=== PATIENT | male | born 1965 | race Hispanic/Latino ===

== ENCOUNTER 2023-03-25 15:46 | Outpatient (CLI) | payer BC, SELFPAY ==
[2023-03-25 17:52] LABS: #Eosinphils 0.2 10x3/uL (0.0-0.5); #Monocytes 0.6 10x3/uL (0.0-1.1); #Neutrophils 3.8 10x3/uL (1.5-8.4); %Basophils 0.4 % (0.0-2.0); %Lymphocytes 31.2 % (18.0-47.0); %Neutrophils 56.1 % (40.0-75.0); ALT (SGPT) 20 U/L (8-55); AST (SGOT) 19 U/L (5-34); Albumin 4.1 g/dL (3.5-5.0); Alkaline Phosphatase 121 U/L (40-110); Anion Gap 13 mmol/L (10-20); BUN (Urea Nitrogen) 14 mg/dL (8.4-25.7); Bilirubin, Total 0.6 mg/dL (0.2-1.2); Calc. Creatinine Clearance 0 mL/min (70-130); Calcium 8.6 mg/dL (7.8-10.44); Carbon Dioxide 26 mmol/L (22-29); Chloride 104 mmol/L (98-107); Estimated GFR 100; Globulin 2.9 g/dL (2.4-3.5); Glucose 100 mg/dL (70-105); Hematocrit 43.3 % (38.8-50.0); Hemoglobin 14.3 g/dL (13.5-17.5); Mean Corpuscular Hemoglobin 29.2 pg (27.0-33.0); Mean Corpuscular Volume 88.4 fl (81.2-95.1); Mean Platelet Volume 10.7 fl (7.4-10.4); Platelet Count 275 10x3/uL (150-450); RBC Distribution Width 12.7 % (11.5-14.5); Sodium 139 mmol/L (136-145); White Blood Cell (WBC) Count 6.8 10x3/uL (3.5-10.5)
== END 2023-03-25 15:47 | disposition home or self-care (01) ==
LOC: LABBT 15:46
PROVIDERS: ATTEND Surgery
DX: Z01.818 Encounter for other preprocedural examination (principal); K42.9 Umbilical hernia without obstruction or gangrene
CPT/HCPCS: 80053; 85025; 93005; 93010

== ENCOUNTER 2023-03-29 08:28 | Day surgery (SDC) | payer BC ==
[2023-03-25 16:17] VITALS: BMI 29.2
[2023-03-29] MEDS ORDERED: Bupivacaine 0.25% HCL 30 ML VIAL ONE (10:28)
[2023-03-29] MEDS ORDERED: EPINEPHrine 1 MG/ML VIAL ONE (10:28)
[2023-03-29] MEDS ORDERED: Bupivacaine PF 0.5% 30 ML VIAL ONE (11:50)
[2023-03-29] MEDS ORDERED: PROPOFOL 20 ML ONE (11:57)
[2023-03-29] MEDS ORDERED: Lidocaine 1% PF 5 ML VIAL ONE ×2 (11:59→13:15)
[2023-03-29] MEDS ORDERED: Sodium Chloride 0.9% 100 ML ONE (12:53)
[2023-03-29] MEDS ORDERED: CEFAZOLIN 2 GM VIAL ONE (12:53)
[2023-03-29] MEDS ORDERED: fentaNYL PF 100 MCG/2 ML SYRINGE ONE (13:02)
[2023-03-29] MEDS ORDERED: Midazolam HCl 2 mg/2 ml Vial ONE (13:02)
[2023-03-29] MEDS ORDERED: Ondansetron PF 4 MG/2 ML Vial ONE ×2 (13:02→13:15)
[2023-03-29] MEDS ORDERED: Dexamethasone 4 mg/ml Vial ONE (13:02)
[2023-03-29] MEDS ORDERED: Dexamethasone 20 MG/5 ML VIAL ONE (13:15)
[2023-03-29] MEDS ORDERED: Naloxone HCl 0.4 mg/ml Vial ONE (13:15)
[2023-03-29] MEDS ORDERED: PROPOFOL 200 MG/20 ML VIAL ONE (13:15)
== END 2023-03-29 15:39 | disposition home or self-care (01) ==
LOC: SDC 08:28
PROVIDERS: ATTEND Surgery
PROC: 0WQF0ZZ Repair Abdominal Wall, Open Approach (ICD-10-PCS; principal; 2023-03-29)
DX: K42.9 Umbilical hernia without obstruction or gangrene (principal); E78.5 Hyperlipidemia, unspecified; E03.9 Hypothyroidism, unspecified; Z87.891 Personal history of nicotine dependence; Z79.899 Other long term (current) drug therapy
CPT/HCPCS: J0171; J1100; J2250; J2310; J2405; J2704; J3490; S0020